=== PATIENT | female | born 1960 | race African-American/Black ===

== ENCOUNTER 2018-07-02 19:47 | Emergency (ER) | payer BC ==
[2018-07-02] MEDS ORDERED: ONDANSETRON 4 MG/2 ML VIAL IVPUSH ONE (19:58)
--- NOTE | 2018-07-02 20:12 | PDOC ---
History of Present Illness - General Stated Complaint: WEAKNESS RIGHT SIDE Time Seen by Provider: 07/02/18 19:50 - History of Present Illness Initial Comments: 07/02/18 20:10 57 yo F with h/o HTN who p/w vomiting. Patient with 3 episodes of NBNB emesis beginning today at approximately 5:00 PM. Patient denies symptom management, recent travels, hiking, camping. Recent sick contacts at work. Patiet employed at high-school. Also endorses right sided upper and lower ext. numbness. Nml bowel habits, last stool today. Absent BRBPR. Patient denies MCNAMARA, vision change, palpitations, cough, wheezing, orthopena, PND , leg swelling/pain, F,C, CP, SOB, urinary complaints, hematuria, BPR, abdominal pain, diarrhea, constipation, lightheadedness, weakness, sensory changes. PMHx: as noted above Surgical: Denies abdominal surgery ROS: as noted SHx: Denies Etoh, IVDA, tobacco use Allergies: NKDA Past History - Past Medical History Allergies/Adverse Reactions: Allergies Allergy/AdvReac Type Severity Reaction Status Date / Time No Known Allergies Allergy Verified 10/01/11 14:25 Home Medications: Ambulatory Orders No Home Medications 0 dose .ROUTE UTDICT 10/01/11 Amlodipine Besylate [Norvasc -] 5 mg PO DAILY #30 tablet 07/02/18 Anemia: No Asthma: No CVA: No COPD: No CHF: No Diabetes: No Dialysis: No HTN: No Kidney Stones: No - Suicide/Smoking/Psychosocial Hx Smoking Status: No Smoking History: Unknown if ever smoked Have you smoked in the past 12 months: No Number of Cigarettes Smoked Daily: 0 Cigars Per Day: 2 Hx Alcohol Use: Yes (social) Drug/Substance Use Hx: Yes (marijuana) Substance Use Type: None Review of Systems - Review of Systems Comments:: 07/02/18 20:11 GENERAL/CONSTITUTIONAL: No fever or chills. No weakness. HEAD, EYES, EARS, NOSE AND THROAT: No change in vision. No ear pain or discharge. No sore throat. CARDIOVASCULAR: No chest pain or shortness of breath RESPIRATORY: No cough, wheezing, or hemoptysis. GASTROINTESTINAL: + nausea, vomiting. No diarrhea or constipation. GENITOURINARY: No dysuria, frequency, or change in urination. MUSCULOSKELETAL: No joint or muscle swelling or pain. No neck or back pain. SKIN: No rash NEUROLOGIC:+ Weakness, and sensory change. No headache, vertigo, loss of consciousness. ENDOCRINE: No increased thirst. No abnormal weight change HEMATOLOGIC/LYMPHATIC: No anemia, easy bleeding, or history of blood clots. ALLERGIC/IMMUNOLOGIC: No hives or skin allergy. *Physical Exam - Vital Signs Last Vital Signs Temp Pulse Resp BP Pulse Ox 98 F 80 20 187/97 H 98 07/02/18 20:06 07/02/18 20:06 07/02/18 20:06 07/02/18 20:06 07/02/18 20:06 - Physical Exam Comments: 07/02/18 20:11 GENERAL: Awake, alert, and fully oriented, in no acute distress HEAD: No signs of trauma, normocephalic, atraumatic EYES: PERRLA, EOMI, sclera anicteric, conjunctiva clear ENT: Hearing grossly normal, nares patent, oropharynx clear without exudates. Moist mucosa NECK: Normal ROM, supple, no lymphadenopathy, JVD, or masses LUNGS: No distress, speaks full sentences, clear to auscultation bilaterally HEART: Regular rate and rhythm, normal S1 and S2, no murmurs, rubs or gallops, peripheral pulses normal and equal bilaterally. ABDOMEN: + Epigastria abdominal pain/ttp. Soft, NDS, normoactive bowel sounds. No guarding, no rebound. No masses. Neg CVA ttp. EXTREMITIES : Normal inspection, Normal range of motion, no edema. No clubbing or cyanosis. NEUROLOGICAL: Cranial nerves II through XII grossly intact. Normal speech, normal gait, no focal sensorimotor deficits SKIN: Warm, Dry, normal turgor, no rashes or lesions noted ED Treatment Course - LABORATORY CBC & Chemistry Diagram: 07/02/18 21:18 07/02/18 19:58 Medical Decision Making - Medical Decision Making 07/02/18 20:47 57 yo F with h/o HTN who p/w vomiting. BP 189/97, vitals otherwise wnl, AF, A& Ox3. Physical exam notable for epigastirc ttp. Patient with possible gastroenteritis, gastritis, pancreatitis, biliary dz. gastroparesis. Will assess for cardiac dysarrythmias, hypoglycemia, electrolyte abnml, metabolic and toxic derangements, acid-base disturbances, infection. ED Course: NS, Zofran, Famotidine, Tylenol 07/02/18 21:40 EKG: NSR with absent ISABEL, STD. Nml interval duration and axis. Nml R wave progression. Absent Q waves. 07/02/18 21:52 Bedside GB U/S unremarkable 07/02/18 23:32 Rocephin 1 g for UTI Laboratory Tests 07/02/18 20:47 Urine Color Yellow Urine Ketones Negative Urine Blood 1+ H Urine Nitrite Negative Ur Leukocyte Esterase Negative Urine WBC (Auto) 3 Urine RBC (Auto) 11 CBC,CMP: Unremarkable 07/02/18 23:33 Trop: Neg CXR: Unremarkable prelim read 07/02/18 23:40 BP 191/95 Norvasc 5 mg Norvasc sent to pharmacy Stable for d/c with return precautions Arranged f/u care with PMD. tolerating PO intake 07/03/18 00:32 trop: Neg *DC/Admit/Observation/Transfer Diagnosis at time of Disposition: Abdominal pain with vomiting - Discharge Dispostion Condition at time of disposition: Stable Decision to Admit order: No - Prescriptions Prescriptions: Amlodipine Besylate [Norvasc -] 5 mg PO DAILY #30 tablet - Referrals - Patient Instructions Printed Discharge Instructions: DI for High Blood Pressure, DI for Vomiting -- Adult Additional Instructions: Please return to the emergency department with any new or worsening symptoms or concerns. Please follow up with your primary care physician within 72 hours. Please take Norvasc daily once a day. - Post Discharge Activity
[2018-07-02 20:15] VITALS: TEMP 98
[2018-07-02] MEDS ORDERED: ONDANSETRON 4 MG/2 ML VIAL ONE (21:10)
[2018-07-02] MEDS ORDERED: FAMOTIDINE 20 MG/50 ML IVPB 20 MG/50 ML MG IVPB ONE ×2 (21:22→21:43)
[2018-07-02] MEDS ORDERED: MAG HYDROX/AL HYDROX/SIMETH 30 ML UNIT-DOSE CUP PO ONE (21:23)
[2018-07-02] MEDS ORDERED: SODIUM CHLORIDE 0.9% 1000 ML INFUS.BAG IV ONE (21:24)
[2018-07-02 21:35] LABS: BASO % 0.4 % (0-2.0); EOS % 0.2 % (0-4.5); HEMATOCRIT 39.1 % (32.4-45.2); HEMOGLOBIN 13.1 GM/dL (10.7-15.3); LYMPH % 10.4 % (8-40); MCH 28.8 pg (25.7-33.7); MCHC 33.5 g/dl (32.0-36.0); MEAN PLT VOLUME 7.4 fl (7.5-11.1); MONO % 6.1 % (3.8-10.2); NEUT % 82.9 % (42.8-82.8); PLATELET COUNT 362 K/MM3 (134-434); RBC 4.55 M/mm3 (3.60-5.2); RDW 16.8 % (11.6-15.6); WHITE BLOOD COUNT 8.2 K/mm3 (4.0-10.0)
[2018-07-02] MEDS ORDERED: ACETAMINOPHEN 1000 MG/100 ML VIAL (NON FORMULARY) IVPB ONE (21:36)
[2018-07-02] MEDS ORDERED: ACETAMINOPHEN INJECTION 100 ML IVPB ONE (21:43)
[2018-07-02] MEDS ORDERED: MAG HYDROX/AL HYDROX/SIMETH 30 ML UNIT-DOSE CUP ONE (21:43)
[2018-07-02 22:11] LABS: ALK PHOS 93 U/L (45-117); ANION GAP 8 MMOL/L (8-16); BILIRUBIN,TOTAL 0.6 mg/dL (0.2-1); BLOOD UREA NITROGEN 13 mg/dL (7-18); CALCIUM 9.3 mg/dL (8.5-10.1); CHLORIDE 102 mmol/L (98-107); CO2 32 mmol/L (21-32); CREATININE 0.8 mg/dL (0.55-1.3); GLUCOSE,RANDOM 97 mg/dL (74-106); SGOT/AST 22 U/L (15-37); SGPT/ALT 19 U/L (13-61); SODIUM 142 mmol/L (136-145); TOT PROT 8.2 g/dl (6.4-8.2)
[2018-07-02 22:21] LABS: LIPASE 121 U/L (73-393); MAGNESIUM 2.1 mg/dL (1.8-2.4)
[2018-07-02 23:18] LABS: EPI CELLS 6.2 /HPF (0-5/HPF); PH,URINE 6.5 (5.0-8.0); URINE APPEARANCE CLEAR; URINE BACTERIA 163.6 /hpf (NEGATIVE); URINE BILIRUBIN NEGATIVE (NEGATIVE); URINE CASTS 3 /lpf (0-8); URINE COLOR YELLOW; URINE GLUCOSE (UA) NEGATIVE (NEGATIVE); URINE KETONE NEGATIVE (NEGATIVE); URINE LEUK ESTERASE NEGATIVE (NEGATIVE); URINE NITRITE NEGATIVE (NEGATIVE); URINE PROTEIN 1+ (NEGATIVE); URINE RBC 11 /hpf (0-4); URINE WBC 3 /hpf (0-5)
--- NOTE | 2018-07-02 23:33 | PDOC ---
Documentation entered by Maci Mcdermott SCRIBE, acting as scribe for Holley Soto DO. Holley Soto DO: This documentation has been prepared by the Baldemar prasad Daisy, SCRIBE, under my direction and personally reviewed by me in its entirety. I confirm that the documentation accurately reflects all work, treatment, procedures, and medical decision making performed by me. Attending Attestation - Resident Resident Name: Aldo Vieyra - ED Attending Attestation I have performed the following: I have examined & evaluated the patient, The case was reviewed & discussed with the resident, I agree w/resident's findings & plan - HPI HPI: 07/02/18 21:25 The patient is a 57 YOF with a PMH of poorly controlled HTN who presents for evaluation of vomiting earlier today. Patient reports 3 episodes of NB, NB vomiting since 5PM today. Patient also admits to numbness to the right hand and foot that have resolved while in the ED. She admits having HTN while with her son but never received follow up with a PCP. Allergies: NKDA - Physicial Exam PE: 07/02/18 21:41 ADULT PHYSICAL EXAM Constitutional: Awake, alert, oriented. No acute distress. Cardiovascular: Regular rate. Regular rhythm. S1, S2 regular. Distal pulses are 2+ and symmetric. Pulmonary/Chest: No evidence of respiratory distress. Clear to auscultation bilaterally No wheezing, rales or rhonchi. Abdominal: Soft and non-distended. (+) Epigastric tenderness. (+) Mild right upper quadrant tenderness. No rebound, guarding or rigidity. No organomegaly. No palpable masses. Good bowel sounds. Musculoskeletal: No edema. No cyanosis. No clubbing. Full range of motion in all extremities. Nocalf tenderness. Radial/pedal pulses are intact and 2+ bilaterally Skin: Skin is warm and dry. Neurological: Alert and oriented to person, place, and time. Cranial nerves II -XII are grossly intact. Psychiatric: Good eye contact. Normal interaction, affect and behavior. - Medical Decision Making 07/02/18 21:36 a/p: 57yo female with n/v today, no change in bowel habit, no fevers -epigastric pain and suprapubic pain -no radiation of the pain -mild ruq ttp, bedside ultrasound negative for acute gb pathology -uncontrolled bp, hx of htn when , does not follow with a pmd -bp 197/98 -will send labs, cxr, trop, medicate and reassess -will send ua -will give gi meds, tylenol, will monitor 07/02/18 23:32 pt with a uti cxr clear labs reviewed will start rocephin iv then dc with keflex 07/02/18 23:54 pt with persistent elevated bp will start norvasc no end organ damage on labs pending cardiac profile will treat uti 07/03/18 00:50 repeat bp is 175/83 pt feeling better discussed follow up with the pmd discussed taking bp meds discussed taking uti abx discussed all reasons to return to the ED pt stable for dc to home Heart Score/ECG Review - ECG Intrepretation Comment:: 07/02/18 20:44 sinus at 77, nl axis, nl interval, no acute st/t wave findings
[2018-07-02] MEDS ORDERED: amLODIPine BESYLATE 10 MG TABLET (FP) PO ONE (23:50)
[2018-07-02] MEDS ORDERED: amLODIPine BESYLATE 5 MG TABLET (FP) ONE (23:53)
[2018-07-03 00:54] VITALS: BP 175/83; PULSE 82
--- NOTE | 2018-07-03 10:39 | EKG ---
Test Reason : Blood Pressure : / mmHG Vent. Rate : 077 BPM Atrial Rate : 077 BPM P-R Int : 156 ms QRS Dur : 070 ms QT Int : 414 ms P-R-T Axes : 066 035 039 degrees QTc Int : 468 ms POOR DATA QUALITY, INTERPRETATION MAY BE ADVERSELY AFFECTED NORMAL SINUS RHYTHM POSSIBLE LEFT ATRIAL ENLARGEMENT WHEN COMPARED WITH ECG OF 01-OCT-2011 14:39, NO SIGNIFICANT CHANGE WAS FOUND Confirmed by JOHAN RHODES MD ([id number]) on 07/03/2018 10:39:30 AM Referred By: Confirmed By:JOHAN RHODES MD
== END 2018-07-03 02:15 | disposition home or self-care (01) ==
LOC: JER 19:47
PROC: 3E033GC Introduction of Other Therapeutic Substance into Peripheral Vein, Percutaneous Approach (ICD-10-PCS; principal; 2018-07-02)
PROC: 3E033GC Introduction of Other Therapeutic Substance into Peripheral Vein, Percutaneous Approach (ICD-10-PCS; 2018-07-02)
PROC: 3E033NZ Introduction of Analgesics, Hypnotics, Sedatives into Peripheral Vein, Percutaneous Approach (ICD-10-PCS; 2018-07-02)
DX: N39.0 Urinary tract infection, site not specified (principal)
CPT/HCPCS: 36415; 71045-TC-FY; 80053; 81003; 82550; 82553; 83690; 83735; 84484; 85025; 93005; 93010; 99284-25; J0131; J7030

== ENCOUNTER 2018-07-07 16:19 | Emergency (ER) | payer BC ==
--- NOTE | 2018-07-07 16:34 | PDOC ---
Rapid Medical Evaluation Chief Complaint: Pain Time Seen by Provider: 07/07/18 16:31 Medical Evaluation: Allergies Allergy/AdvReac Type Severity Reaction Status Date / Time No Known Allergies Allergy Verified 10/01/11 14:25 07/07/18 16:33 I did a brief in person evaluation on this patient. CC: "The muscles in my right leg ache." HPI: Pt is a 57 Yo female who states that she has right "leg pain." Pt denies LE or UE paresthesia. Denies slurred speech. PE: Skin: Clear Lungs: Clear Heart:RRR Abd: soft, non tender MS: Moves all extremities without difficulty Neuro: alert Psych: appropriate affect. Pt will proceed to main ED for further evaluation. Discharge Disposition - Diagnosis Leg pain Qualifiers: Laterality: right Qualified Code(s): M79.604 - Pain in right leg - Referrals - Patient Instructions - Post Discharge Activity
[2018-07-07 16:36] VITALS: PULSE 83; TEMP 98.8; BMI 28.3
--- NOTE | 2018-07-07 17:10 | PDOC ---
History of Present Illness - General Chief Complaint: Pain Stated Complaint: SENT BY DOCTOR Time Seen by Provider: 07/07/18 16:31 - History of Present Illness Initial Comments: 07/07/18 17:05 57-year-old female presents for evaluation of leg pain. She states she was seen in the hospital 3 days ago discharged and since that time her leg pain is gotten worse. She denies systemic symptoms. No back pain or radicular symptoms. Past History - Past Medical History Allergies/Adverse Reactions: Allergies Allergy/AdvReac Type Severity Reaction Status Date / Time No Known Allergies Allergy Verified 10/01/11 14:25 Home Medications: Ambulatory Orders Cyclobenzaprine HCl [Flexeril 10 mg] 10 mg PO HS PRN #10 tablet 07/07/18 Anemia: No Asthma: No CVA: No COPD: No CHF: No Diabetes: No Dialysis: No HTN: Yes Kidney Stones: No - Immunization History TDAP Vaccination: Yes Immunization Up to Date: Yes - Suicide/Smoking/Psychosocial Hx Smoking Status: No Smoking History: Current every day smoker Have you smoked in the past 12 months: Yes Number of Cigarettes Smoked Daily: 0 Cigars Per Day: 2 Information on smoking cessation initiated: No Hx Alcohol Use: Yes Drug/Substance Use Hx: No Substance Use Type: None Review of Systems - Review of Systems Constitutional: No: Fever Musculoskeletal: Yes: See HPI, Muscle Pain *Physical Exam - Vital Signs Last Vital Signs Temp Pulse Resp BP Pulse Ox 98.8 F 83 16 159/108 H 100 07/07/18 16:32 07/07/18 16:32 07/07/18 16:32 07/07/18 16:32 07/07/18 16:32 - Physical Exam Comments: 07/07/18 17:09 HEAD: NC/AT EYES: Conjuntiva clear MS: Full ROM in all joints without edema NEUROLOGIC: No gross sensory or motor deficits, NVID SKIN: Normal color and temperature no lesions or rashes 5 out of 5 strength in bilateral lower extremities without gross sensorimotor deficits. Left calf is nontender and soft. Right calf and thigh as well as left thigh hurt tender but soft. No gross sensorimotor deficits in bilateral lower extremities. Fully intact. ED Treatment Course - LABORATORY CBC & Chemistry Diagram: 07/07/18 17:29 07/07/18 17:29 - RADIOLOGY Radiology Studies Ordered: Category Date Time Status DUPLEX VASCUL US-2LEGS [US] Stat Ultrasound 07/07/18 16:51 Ordered Medical Decision Making - Medical Decision Making 07/07/18 17:09 Differential includes DVT versus rhabdo this is not lumbar radiculopathy. She has a negative straight leg raise test bilaterally. I will get CPK with isoenzymes and ultrasounds of both legs. 07/07/18 18:51 Discussed with ER attending, pt OK to be d/c'd home with f/u with PCP Doppler and CPK negative. Hypertensive will treat with metoprolol and recheck BP 07/07/18 20:17 BP after 25 mg of motoprolol 189/111 will transfer to vertical area of ER *DC/Admit/Observation/Transfer Diagnosis at time of Disposition: Hypertension Leg pain Qualifiers: Laterality: right Qualified Code(s): M79.604 - Pain in right leg - Discharge Dispostion Condition at time of disposition: Stable - Referrals - Patient Instructions - Post Discharge Activity
[2018-07-07 17:53] LABS: BASO % 0.4 % (0-2.0); EOS % 2.1 % (0-4.5); HEMATOCRIT 38.2 % (32.4-45.2); HEMOGLOBIN 12.9 GM/dL (10.7-15.3); LYMPH % 27.9 % (8-40); MCH 29.2 pg (25.7-33.7); MCHC 33.8 g/dl (32.0-36.0); MEAN CELL VOLUME 86.3 fl (80-96); MEAN PLT VOLUME 7.2 fl (7.5-11.1); MONO % 6.5 % (3.8-10.2); NEUT % 63.1 % (42.8-82.8); PLATELET COUNT 371 K/MM3 (134-434); RBC 4.43 M/mm3 (3.60-5.2); RDW 16.3 % (11.6-15.6); WHITE BLOOD COUNT 6.2 K/mm3 (4.0-10.0)
[2018-07-07 18:18] LABS: ALBUMIN 3.9 g/dl (3.4-5.0); ALK PHOS 83 U/L (45-117); ANION GAP 7 MMOL/L (8-16); BILIRUBIN,TOTAL 0.6 mg/dL (0.2-1); BLOOD UREA NITROGEN 18 mg/dL (7-18); CALCIUM 9.5 mg/dL (8.5-10.1); CHLORIDE 102 mmol/L (98-107); CO2 29 mmol/L (21-32); CREATININE 0.9 mg/dL (0.55-1.3); GLUCOSE,RANDOM 88 mg/dL (74-106); POTASSIUM 4.1 mmol/L (3.5-5.1); SGOT/AST 21 U/L (15-37); SGPT/ALT 22 U/L (13-61); SODIUM 138 mmol/L (136-145); TOT PROT 8.1 g/dl (6.4-8.2)
[2018-07-07 18:25] LABS: EPI CELLS 1.3 /HPF (0-5/HPF); PH,URINE 6.5 (5.0-8.0); URINE APPEARANCE CLEAR; URINE BACTERIA 18.1 /hpf (NEGATIVE); URINE BILIRUBIN NEGATIVE (NEGATIVE); URINE CASTS 2 /lpf (0-8); URINE COLOR YELLOW; URINE GLUCOSE (UA) NEGATIVE (NEGATIVE); URINE KETONE NEGATIVE (NEGATIVE); URINE LEUK ESTERASE NEGATIVE (NEGATIVE); URINE NITRITE NEGATIVE (NEGATIVE); URINE PROTEIN TRACE (NEGATIVE); URINE RBC 4 /hpf (0-4); URINE UROBILINOGEN 0.2 mg/dL (0.2-1.0); URINE WBC 1 /hpf (0-5)
[2018-07-07] MEDS ORDERED: metoPROLOL SUCCINATE 25 MG TAB.SR.24H (FP) PO ONE (18:50)
[2018-07-07] MEDS ORDERED: cloNIDine HCL 0.1 MG TABLET PO ONE (20:32)
--- NOTE | 2018-07-07 20:35 | PDOC ---
*Physical Exam - Vital Signs Last Vital Signs Temp Pulse Resp BP Pulse Ox 98.8 F 83 16 189/111 H 100 07/07/18 16:32 07/07/18 16:32 07/07/18 16:32 07/07/18 20:28 07/07/18 16:32 - Physical Exam General Appearance: Yes: Appropriately Dressed Respiratory/Chest: positive: Lungs Clear, Normal Breath Sounds ED Treatment Course - LABORATORY CBC & Chemistry Diagram: 07/07/18 17:29 07/07/18 17:29 - ADDITIONAL ORDERS Additional order review: Laboratory Results 07/07/18 07/07/18 17:29 17:00 Sodium 138 Potassium 4.1 Chloride 102 Carbon Dioxide 29 Anion Gap 7 L BUN 18 Creatinine 0.9 Creat Clearance w eGFR 64.77 Random Glucose 88 Calcium 9.5 Total Bilirubin 0.6 AST 21 ALT 22 Alkaline Phosphatase 83 Creatine Kinase 178 Creatine Kinase Index 0.5 CK-MB (CK-2) 1.0 Total Protein 8.1 Albumin 3.9 Urine Color Yellow Urine Appearance Clear Urine pH 6.5 Ur Specific [place] 1.021 Urine Protein Trace Urine Glucose (UA) Negative Urine Ketones Negative Urine Blood Trace Urine Nitrite Negative Urine Bilirubin Negative Urine Urobilinogen 0.2 Ur Leukocyte Esterase Negative Urine WBC (Auto) 1 Urine RBC (Auto) 4 Urine Casts (Auto) 2 U Epithel Cells (Auto) 1.3 Urine Bacteria (Auto) 18.1 07/07/18 17:29 RBC 4.43 MCV 86.3 MCHC 33.8 RDW 16.3 H MPV 7.2 L Neutrophils % 63.1 D Lymphocytes % 27.9 D Monocytes % 6.5 Eosinophils % 2.1 D Basophils % 0.4 - Medications Given in the ED: ED Medications Discontinued Medications Generic Name Dose Route Start Last Admin Trade Name Freq PRN Reason Stop Dose Admin Metoprolol Succinate 25 mg 07/07/18 18:50 07/07/18 19:16 Toprol Xl - PO 07/07/18 18:51 25 mg ONCE ONE Administration Medical Decision Making - Medical Decision Making 07/07/18 20:33 b/p grossly elevated. patient was started on norvasc during the last ED visit. currently on norvasc 10 mg po. will clonidine 0.1 mg po x 1 and monitor b/p prior to d/c 07/07/18 20:33 b/p slightly improved. advised to keep b/p log at home. continue norvasc close pcp follow up discussed with patient. patient verbalized understanding. 07/09/18 13:42 *DC/Admit/Observation/Transfer Diagnosis at time of Disposition: Leg pain Qualifiers: Laterality: right Qualified Code(s): M79.604 - Pain in right leg Hypertension Qualifiers: Hypertension type: essential hypertension Qualified Code(s): I10 - Essential ( primary) hypertension - Discharge Dispostion Disposition: HOME Condition at time of disposition: Stable - Prescriptions Prescriptions: Cyclobenzaprine HCl [Flexeril 10 mg] 10 mg PO HS PRN #10 tablet PRN Reason: Muscle Spasms - Referrals - Patient Instructions Printed Discharge Instructions: Essential Hypertension Additional Instructions: please follow up with your doctor as soon as possible to monitor your b/p and adjust your medication. take flxeril as prescribed. follow up with your doctor as soon as possible. - Post Discharge Activity Forms/Work/School Notes: Back to Work
[2018-07-07] MEDS ORDERED: cloNIDine HCL 0.1 MG TABLET ONE (21:15)
[2018-07-07 22:58] VITALS: BP 180/110
[2018-07-10 18:12] LABS: CK-MM 100 % (97-100)
== END 2018-07-07 22:59 | disposition home or self-care (01) ==
LOC: JER 16:19 → JERFT 16:19 → JER 22:59
DX: I10 Essential (primary) hypertension (principal); M79.604 Pain in right leg
CPT/HCPCS: 36415; 80053; 81003; 82550; 82552; 82553; 85025; 93970-TC; 99282-25; J0735

== ENCOUNTER 2019-12-10 10:14 | Emergency (ER) | payer SELFPAY ==
[2019-12-10 10:27] VITALS: PULSE 94; TEMP 98.6; BMI 29.2
--- NOTE | 2019-12-10 10:47 | PDOC ---
History of Present Illness - General Chief Complaint: Blood Pressure Problem Stated Complaint: BLOOD PRESSURE PROBLRM Time Seen by Provider: 12/10/19 11:00 History Source: Patient Exam Limitations: No Limitations - History of Present Illness Initial Comments: 12/10/19 11:05 Patient is a 58 y.o. F PMHx HTN and sciatica. Patient reports she was seen at [address] [place] [address] clinic yesterday who told her to come in to the ED for an MRI "to get checked out". Patient stated she has been having hoarseness in her voice or the past few days that has been improving. She came into the ED Friday for horse voice and was d/c with flonase and famotidine. Patient states she had difficulty walking due to pain in her thighs. Patient has poor followup with pcp and requests to talk to social work. 12/10/19 11:23 PCP: None PMHx: HTN, sciatica Meds: In Chart Allergies: NKDA Dispo: D/C Home 12/10/19 11:24 Is this a multiple visit Asthma Patient?: No Timing/Duration: 1 week Severity: mild Associated Symptoms: reports: denies symptoms Aspirin Received prior to arrival: Yes: no aspirin today Beta Danny Contraindications(Core Measure): Yes: Not Prescribed Beta Danny Given by EMS(Core Measure): No Beta Danny Taken at Home(Core Measure): No Beta Danny Not Indicated at this Time(Core Measure): Yes Past History - Travel History Traveled outside of the country in the last 30 days: No Close contact w/someone who was outside of country & ill: No - Medical History Allergies/Adverse Reactions: Allergies Allergy/AdvReac Type Severity Reaction Status Date / Time No Known Allergies Allergy Verified 10/01/11 14:25 Home Medications: Ambulatory Orders Cyclobenzaprine HCl [Flexeril 10 mg] 10 mg PO HS PRN #10 tablet 12/03/19 Famotidine 10 mg PO HS #14 tablet 12/05/19 Fluticasone Propionate [Flonase Allergy Relief] 9.9 ml NS DAILY #1 bottle 12/05/19 Hydrochlorothiazide [Hctz -] 12.5 mg PO DAILY #14 cap 12/05/19 Naproxen 500 mg PO BID PRN 12/10/19 Anemia: No Asthma: No CVA: No COPD: No CHF: No Diabetes: No Dialysis: No HTN: No Kidney Stones: No - Reproductive History Is Patient Now?: No - Immunization History TDAP Vaccination: Yes Immunization Up to Date: Yes - Psycho-Social/Smoking History Smoking Status: No Smoking History: Never smoked Have you smoked in the past 12 months: No Number of Cigarettes Smoked Daily: 10 Cigars Per Day: 2 Information on smoking cessation initiated: No - Substance Abuse Hx (Audit-C & DAST Scrn) How often the patient has a drink containing alcohol: Never Score: In Men: 4 or > Positive; In Women: 3 or > Positive: 0 Screen Result (Pos requires Nsg. Audit-10AR): Negative In the last yr the pt used illegal drug/Rx for NonMed reason: No Score: Yes response is considered Positive: 0 Screen Result (Positive result requires Nsg. DAST-10): Negative Review of Systems - Review of Systems Is the patient limited Kyrgyz proficient: No Constitutional: No: Chills, Fever HEENTM: No: Blurred Vision, Double Vision Respiratory: No: Cough, Shortness of Breath, SOB at Rest Cardiac (ROS): No: Chest Pain, Lightheadedness ABD/GI: No: Constipated, Diarrhea, Nausea, Vomiting : No: Burning, Dysuria Musculoskeletal: Yes: Back Pain. No: Muscle Pain, Muscle Weakness Integumentary: No: Bruising, Dryness, Sweating Neurological: No: Headache, Numbness, Tingling, Weakness, Dizziness Hematologic/Lymphatic: No: Easy Bleeding, Easy Bruising *Physical Exam - Vital Signs Last Vital Signs Temp Pulse Resp BP Pulse Ox 98.6 F 94 H 16 205/106 H 100 12/10/19 10:21 12/10/19 10:21 12/10/19 10:21 12/10/19 10:21 12/10/19 10:21 - Physical Exam General Appearance: Yes: Appropriately Dressed. No: Apparent Distress, Disheveled Respiratory/Chest: positive: Lungs Clear, Normal Breath Sounds. negative: Chest Tender, Respiratory Distress, Accessory Muscle Use, Crackles, Rales, Wheezing Cardiovascular: positive: Regular Rhythm, Regular Rate. negative: JVD, Murmur Gastrointestinal/Abdominal: positive: Normal Bowel Sounds, Flat, Soft. negative: Tender, Organomegaly, Pulsatile Mass, Distended, Guarding, Rebound, Tenderness Musculoskeletal: positive: Normal Inspection. negative: CVA Tenderness, CVA Tenderness (R), CVA Tenderness (L) Extremity: positive: Normal Inspection. negative: Tender Medical Decision Making - Medical Decision Making 12/10/19 11:24 Patient is a 58 y.o. F PMHx HTN and sciatica. DDx: Asymptomatic hypertension Dispo: D/C home with referral to PCP. - Patient was seen for asymptomatic hypertension this can be caused due to medication non compliance. 12/10/19 11:27 Discharge - Discharge Information Problems reviewed: Yes Clinical Impression/Diagnosis: Hypertension Qualifiers: Hypertension type: unspecified Qualified Code(s): I10 - Essential (primary) hypertension Condition: Improved Disposition: HOME - Admission No - Follow up/Referral Referrals: Jaswant Baron MD [Non Staff, Medical] - - Patient Discharge Instructions Additional Instructions: You were seen in the emergency department for asymptomatic hypertension. This can be caused by medication noncompliance. You were monitored in the emergency department and sent home with a referral to a pcp. Please follow up with the physician at [address] [place] [address] regarding your visit to the emergency department. If you experience profound headache, dizziness, nausea, vomiting, or weakness please return to the emergency department or call 911. . [facility]. [address] [place] [address]. - Post Discharge Activity
--- NOTE | 2019-12-10 12:01 | PDOC ---
Documentation entered by Eliana Faulkner SCRIBE, acting as scribe for Lashawn Archer MD. Lashawn Archer MD: This documentation has been prepared by the genevaibeKaushik Lincy, SCRIBE, under my direction and personally reviewed by me in its entirety. I confirm that the documentation accurately reflects all work, treatment, procedures, and medical decision making performed by me. Attending Attestation - Resident Resident Name: EstefaníaChele - ED Attending Attestation I have performed the following: I have examined & evaluated the patient, The case was reviewed & discussed with the resident, I agree w/resident's findings & plan, Exceptions are as noted - HPI HPI: 12/10/19 11:42 The patient is a 58-year-old female with a past medical history significant for HTN who was sent to the emergency department from the [facility] for elevated blood pressure. The patient was seen at the ED on 12/02 and 12/04 for back pain (>6 months) and voice hoarseness. The patient had unremarkable labs and was discharged home with famotidine, Flonase, and HCTZ (for elevated blood pressure). The patient was given the [facility] referral to establish primary doctor care. The patient was seen at the clinic today, had elevated blood pressure at the center and was sent to the ER for further management. - Physicial Exam PE: 12/10/19 11:59 General:well appearing Chest: CTAB, good air entry, no wheezes rales or rhonchi CVS: + s1 s2, RRR - Medical Decision Making 12/10/19 12:00 58 yo F here with asymptomatic HTN, reports compliance with meds, as per ACEP guidelines for asymptomatic HTN in the ED, further workup not indicated at this time. Plan: -d/c with return precautions, recommend PMD f/u and c/w all home medications as previously prescribed This clinical encounter is taking place during a federal and state health care emergency attributable to the novel Simmons Virus pandemic. The [employer] of the Department of Health and Human Services has declared, pursuant to the Public Health Service Act 319F-3 (42 U.S.C. 247d-6d), that a covered persons activities related to medical countermeasures against COVID-19 will be immune from liability under Federal and State law. Discharge - Discharge Information Problems reviewed: Yes - Discharge Information Clinical Impression/Diagnosis: Hypertension Qualifiers: Hypertension type: unspecified Qualified Code(s): I10 - Essential (primary) hypertension Condition: Improved Disposition: HOME - Follow up/Referral Referrals: Jaswant Baron MD [Non Staff, Medical] - - Patient Discharge Instructions Additional Instructions: You were seen in the emergency department for asymptomatic hypertension. This can be caused by medication noncompliance. You were monitored in the emergency department and sent home with a referral to a pcp. Please follow up with the physician at [address] [place] [address] regarding your visit to the emergency department. If you experience profound headache, dizziness, nausea, vomiting, or weakness please return to the emergency department or call 911. . Address: [place], [facility]. [address] [place] [address].
[2019-12-10 12:16] VITALS: BP 193/102
== END 2019-12-10 12:15 | disposition home or self-care (01) ==
LOC: JER 10:14
DX: I10 Essential (primary) hypertension (principal)
CPT/HCPCS: 99283-25